=== PATIENT | male | born 1985 | race Caucasian/White ===

== ENCOUNTER 2020-12-06 19:49 | Emergency (ER) | payer SELFPAY ==
[2020-12-06] VITALS (32 sets, daily range): BP systolic 91–143; BP diastolic 46–98; PULSE 59–78; RESP 8–23; TEMP 36.2; O2SAT 93–97
--- NOTE | 2020-12-06 19:45 | RT.EKG_ITS ---
APPROVED REPORT Exam: Resting ECG Reason for Exam: poss OD Patient Location: E HR:75 bpm ECG Measurements Heart Rate 75 AXIS CO 184 P 51 QRSd 93 QRS 30 QT 396 T 44 QTc 442 Conclusion Sinus rhythm...normal P axis, V-rate 60- 99 Normal [place] Normal QT Normal Electrocardiogram
--- NOTE | 2020-12-06 20:00 | DI.CT_ITS ---
Exam(s) CT HEAD WO EXAM: CT HEAD WO CLINICAL HISTORY: altered mental status. TECHNIQUE: Imaging Protocol: Axial computed tomography images with coronal and sagittal reformatted images were created and reviewed COMPARISON: No exams were available for comparison FINDINGS: Ventricles and Extra axial spaces: Normal in size and morphology for the patient's age. Hemorrhage: None. Cerebral parenchyma: Normal. Midline shift: None. Brainstem/Cerebellum: Normal. Calvarium: Normal. Visualized Paranasal sinuses/Mastoids: There is near complete opacification of the left maxillary sin us. There is opacification of several ethmoid air cells bilaterally. There is mild mucosal thickeni ng in the right maxillary sinus. There is opacification of a few mastoid air cells. Soft Tissues: Unremarkable. IMPRESSION: 1. No acute intracranial process. 2. Paranasal sinus disease. RADIATION DOSE DELIVERED: 880.03mGy.cm Total DLP DATA REPOSITORY: All CT scans at this facility are submitted to the National Radiology Data Registry (NRDR) Dose Index Registry (DIR) with the [employer] [place] [employer] (ACR). RADIATION OPTIMIZATION: All CT scans at this facility use at least one of these dose optimization te chniques: automated exposure control; mA and/or kV adjustment per patient size (includes targeted exa ms where dose is matched to clinical indication); or iterative reconstruction.
[2020-12-06] MEDS: Prochlorperazine 10 MG/2 ML VIAL IM (20:04)
--- NOTE | 2020-12-06 20:08 | W.ED.GENAD ---
Discharge Plan Disposition Patient Disposition: HOME Condition: Good Discharge Details Clinical Impression: Alcohol intoxication, Adjustment disorder with depressed mood Primary Care Provider: Gisele,Local ED Provider: Frank Brady Meds and New Rx's Prescriptions: Continued pantoprazole 20 mg Tablet,Delayed Release (Dr/Ec) 20 mg PO DAILY RF: 0 famotidine 20 mg Tablet 20 mg PO DAILY RF: 0 buspirone 7.5 mg Tablet 7.5 mg PO BID RF: 0 escitalopram oxalate 20 mg Tablet 20 mg PO HS RF: 0 Discharge Instructions Additional Instructions: Get some rest and drink plenty of fluids tomorrow. Would avoid alcohol for the next day or so. May use Tylenol if needed for headaches. Continue medications. May contact [facility] at [phone] if there are any issues while you were here. Otherwise, return to the ED if any further problems, unsafe feelings, other concerns. Medical Decision Making Patient arrives with altered mental status likely all alcohol intoxication, but he is going through a nasty divorce and had me vague comments regarding suicide. He is actively vomiting it is given IM Compazine. Laboratory studies, EKG, head CT ordered. Father is allowed back to be with patient. Vital signs are normal. Will keep on monitor and observe closely while mental status is clearing. 21:25 - Patient's labs look okay. CBC, liver function, kidney function are all normal. Slight anion gap at 14 with an alcohol level of 188. Tylenol and aspirin negative. EKG normal. CT head normal. Urine drug screen pending. Patient continues to have intermittent nausea with vomiting and stomach burning. IV Pepcid ordered. This helped for short period of time. IV Zofran, GI cocktail, oral Carafate ordered at this time. 01:00 - Patient mental status greatly improved. He has been interviewed by mental health and cleared from their standpoint. Patient reports to me that he does not think he drinking more alcohol than usual. However, he admits that he has been under a lot of stress and thinks he just had a breakdown. Denies any intent to harm self or others. Denies any ingestion. Complains of headache and would like some Tylenol. Will discharge home with his father. He is given mental health phone number for future use while here if needed. Also told to return to ED if any concerns or unsafe feelings. ECG Data Attestation: I personally reviewed and interpreted this ECG (s) as follows: Prior ECG tracings: not available for review Interpretation: see EKG; normal HPI General Mode of arrival: EMS. Date/Time Provider Initiated Documentation: 12/06/20 20:08. Limitations to Documentation: altered mental status. Information obtained by: family and EMS. HPI Narrative: Patient brought in by EMS after parents called for altered mental status. Patient is going through divorce and is up here with his parents. He has been drinking most of the day. He has been depressed with the divorce and has not been able to see his child. It is unknown whether he took any medications or overdose on any pills. He became very altered this evening and had been making some vague statements regarding suicide. He arrives here heavily intoxicated, altered, vomiting. Related Data Home Medications Medication Instructions Recorded Confirmed buspirone 7.5 mg PO BID 12/06/20 12/06/20 escitalopram oxalate 20 mg PO HS 12/06/20 12/06/20 famotidine 20 mg PO DAILY 12/06/20 12/06/20 pantoprazole 20 mg PO DAILY 12/06/20 12/06/20 Allergies Allergy/AdvReac Type Severity Reaction Status Date / Time No Known Allergies Allergy Unverified 12/06/20 20:13 Review of Systems Unobtainable due to mental status [facility] Medical History Depression GERD (gastroesophageal reflux disease) Surgical History Surgical history unknown Social History Smoking/Tobacco Use Status: Current every day Tobacco Type: cigarettes Smoking risk assessment performed?: Yes Alcohol Intake: current Alcohol type: hard liquor Drug use: Daily Substance use type: marijuana Additional Social history: unable to answer Exam Narrative Exam Narrative: Const: WDWN male actively vomiting. HEENT: NC/AT. Normal facial exam. Neck: Supple. Trachea midline. Lungs: Normal respiratory effort. Cor: Good radial pulses. GI: Soft, ND. Neuro: Awake and sitting up, vomiting. Altered. Slurred speech. Cranial nerves II - XII grossly intact. No gross motor or sensory deficit. Ext: No C/C/E. Skin: Warm and dry without rash.
[2020-12-06 20:23] LABS: Abs Immature Grans 0.04 10^3/uL (0.0-0.06); Absolute Basophil Count 0.04 10^3/uL (0.0-0.2); Absolute Lymphocyte Count 3.04 10^3/uL (1.2-3.4); Absolute Monocyte Count 0.53 10^3/uL (0.1-0.8); Absolute Neutrophil Count 5.87 10^3/uL (1.2-6.7); Basophils % 0.4; Eosinophils % 2.1; HCT 50.2 % (40.0-50.0); HGB 17.5 g/dL (13.5-17.5); Immature Grans % 0.4; Lymphocytes % 31.3; MCH 30.6 pg (27.0-33.0); MCHC 34.9 % (32.0-36.0); MCV 87.8 fL (80-95); MPV 9.3 fL (8.0-11.0); Monocytes % 5.5; Neutrophils % 60.3; Nucleated RBC 0 %; Platelet Count 287 10^3/uL (130-400); RBC 5.72 10^6/uL (4.36-5.78); RDW 13.2 % (11.8-14.1); RDW-SD 42.5 fL; WBC 9.72 10^3/uL (4.4-10.8)
[2020-12-06 20:36] LABS: ALT 34 U/L (16-63); AST 19 U/L (15-37); Alkaline Phosphatase 91 U/L (46-116); Anion Gap 14.2 mmol/L (3-11); BUN 7 mg/dL (7-18); Bilirubin, Total 0.5 mg/dL (0.2-1.0); CO2 20.8 mmol/L (21.0-32.0); CREATININE 1.1 mg/dL (0.70-1.30); Calcium 8.5 mg/dL (8.5-10.1); Chloride 105 mmol/L (98-107); ETHANOL BLOOD 188.6 mg/dL (<3); Glucose 94 mg/dL (74-106); Magnesium 1.9 mg/dL (1.8-2.4); Potassium 3.6 mmol/L (3.5-5.1); Sodium 140 mmol/L (136-145); Total Protein 7.6 g/dL (6.4-8.2)
[2020-12-06] MEDS: FAMOTIDINE 20 MG/50 ML BAG 200 MG (20:49)
[2020-12-06 20:50] LABS: Salicylate 4.3 mg/dL (<2.8)
[2020-12-06 20:51] LABS: Acetaminophen < 2 ug/mL (10-30)
[2020-12-06] MEDS: Lactated Ringers 1,000 ML 200 ML IV (21:15)
--- NOTE | 2020-12-06 21:18 | DI.VRAD_ITS ---
PROCEDURE INFORMATION: Exam: CT Head Without Contrast Exam date and time: 12/06/2020 8:14 PM Age: 35 years old Clinical indication: Altered mental status/memory loss; Confusion or disorientation TECHNIQUE: Imaging protocol: Computed tomography of the head without contrast. COMPARISON: No relevant prior studies available. FINDINGS: Brain: Cerebral sulci show bilateral symmetry with no supratentorial mass or mass effect detected. Brainstem and cerebellum are normal in appearance. There is no evidence of acute intracranial hemorrhage. Cerebral ventricles: Ventricular and cisternal spaces are normal in size and configuration and there is no midline shift or hydrocephalus seen. Paranasal sinuses: There is near complete opacification of the left maxillary sinus with membrane thickening and opacification also seen throughout bilateral ethmoid air cells. Mastoid air cells: Grossly clear bilaterally. Bones/joints: Bony calvarium and skull base are intact and no acute fractures are detected. Soft tissues: Unremarkable. IMPRESSION: 1. Unremarkable noncontrast head CT with no evidence of an acute intracranial process. 2. Maxilloethmoidal sinus disease noted as above. Dictated and Authenticated by: Maciel Bethea MD. Ordering:DOREEN Marie MD
[2020-12-06] MEDS: Ondansetron 4 MG/2 ML VIAL IVP (21:43)
[2020-12-06] MEDS: Sucralfate 1 GM TAB PO (21:44)
[2020-12-06 22:01] LABS: *AMPHETAMINES SCREEN URINE Negative (Negative); *BARBITURATES SCREEN URINE Negative (Negative); *BENZODIAZEPINES SCREEN URINE Negative (Negative); Cannabinoids THC Positive (Negative); Cocaine Screen,Urine Negative (Negative); METHADONE URINE SCREEN Negative (Negative); OPIATES URINE SCREEN Negative (Negative)
[2020-12-06 22:02] LABS: Tricyclic Antidepressants Negative (Negative)
--- NOTE | 2020-12-06 22:28 | CMSP_ITS ---
- If Service Date Differs Date of service: 12/06/20 Time of Service: 22:29 Care Management Safety Plan Status: Interim - Reason for Wait Reason for Wait: Medical Clearance Chief Complaint: Frank is a 35 year old man with a history of depression. He presents in the ED via EMS due to concerns of an overdose on medications and drinking an unknown amount of hard liquor. Frank has recently split from his fiancee who is not allowing him to see his child. Parents report Frank has been depressed and fear he may have attempted suicide this evening, as he has been making suicidal comments. CM will respond to ED to assess patient after patient has been medically cleared and assessed by screener. If screener deems patient meets criteria for psychiatric stabilization CM will facilitate interdepartmental huddle with [facility] screener for safety planning considerations and meet with patient to review [facility] policy and safety plan, establish individual wishes for treatment and maintain patient rights. In the interim; please note safety plan below to guide patient care while awaiting further assessment in the ED. SAFETY PLAN: 1. Will remain on suicide precautions and in paper clothes. 2. Will remain in room under direct supervision of one-on-one staff at all times provided by CPSO, SYSTEM ANALYST, CAVALRY OFFICER hvac r instructor. 3. May have paper cups, plates, finger foods as well as a cardboard spoon with which to eat meals. 4. Follow [facility] Management of the Admitted Behavioral Health Patient policy. 5. Personal care: Comfort bath system only at this time. 6. Bathroom privileges: with escort in ED. Available in room without limitation on Med/Surg. 6. No personal belongings at this time; per RN discretion. 7. Visitors: Parents at RN discretion. 8. Phone: Use of hospital phone at RN discretion. 9. Activities: Soft cart items, music tablet, television when available, and other activities at RN discretion. 10. Due to VOLUNTARY status, if patient wishes to leave [facility], staff will contact [facility] Crisis Screener ([phone]) and On-Call Family Mediator ([phone]) as soon as possible. In the event of elopement, notify [facility] Police ([phone]). If deemed appropriate for inpatient psychiatric care, safety plan will be established with patient, and care team, to adhere to patient goals, identify restrictions based on behavioral status, address nutrition, and determine allowed personal belongings, tools for hygiene and personal care. As well plan will determine level of activity including ambulation, level of supervision, visitors, and determine privileges based on level of acuity, behaviors and level of engagement by patient.
[2020-12-07] VITALS (10 sets, daily range): BP systolic 97–131; BP diastolic 59–74; PULSE 56–73; RESP 11–24; O2SAT 91–97
--- NOTE | 2020-12-07 00:49 | PDOC.MHCN ---
Date of service: 12/07/20 Time of Service: 00:46 Mental Health Crisis Note Presenting Issue How did you arrive at the ED and why did you come: Patient arrived at [facility] due to intoxication and family concerned of SI. Precipitating Factors Patient shared that he does not remember the past couple of hours. Patient shared the last thing he remembers is cookingon the grill at his fathers home. Patient denies HI and SI. Patient shared that he lives in [place] and is staying in [place] visiting his parents. Patient shared that he is on medication for anxiety and stomach issues and is taking them as prescribed. Disposition BEHAVIOR: cooperative EYE CONTACT: good MOOD: calm AFFECT: flat APPETITE: poor SLEEP(trouble falling/staying asleep: not sleeping well Plan Patient will go home with his father and get some rest. Patient was given contact information for [facility] should he feel the need to reach out to us for support while his is in [place]. Signature Clinician's Name/Title: Denny CROCKETT
== END 2020-12-07 01:35 | disposition home or self-care (01) ==
PROVIDERS: Emergency Provider Emergency Medicine
DX: F43.21 Adjustment disorder with depressed mood (principal); R11.2 Nausea with vomiting, unspecified; R41.82 Altered mental status, unspecified; F10.120 Alcohol abuse with intoxication, uncomplicated; Y90.5 Blood alcohol level of 100-119 mg/100 ml
CPT/HCPCS: 36415; 80053; 80307; 93005; 96361; 96372; 96374; 99285; 70450; 80320; 80329; 83735; 85025; 93010; J0780; J2405